=== PATIENT | female | born 1945 | race Caucasian/White ===

== ENCOUNTER 2023-12-08 14:13 | Emergency (ER) | payer MEDICARE, BC ==
--- NOTE | 2024-01-05 11:50 | CT ---
"RHIANNON BRODERICK : 1945 CT Head and cervical spine without contrast Study Date: 12/08/2023 4:21 PM Comparison: No priors available during downtime Clinical History: 78-year-old female with pain after fall Technique: Automated exposure control for dose reduction was used. Examination of the head was done in axial plane without intravenous contrast. Coronal reconstruction performed. CT of the cervical spine was obtained in axial plane without intravenous injection of contrast mater ial. Coronal and sagittal reformatted images were obtained from the axial views for evaluation of fr actures, spinal alignment, and canal. FINDINGS: HEAD: There is no evidence of acute intracranial hemorrhage, acute ischemic changes, mass, mass-effect, mi dline shift, or extra-axial fluid collection. There is no hydrocephalus. There is no effacement of cerebral sulci or basal subarachnoid cisterns. Lopez-white matter distinction is preserved. Slight leftward nasal septal deviation. Paranasal sinuses and mastoid air cells well pneumatized. Orb its and globes are intact. There is some soft tissue thickening along the left posterior scalp, either scarring or mild scalp co ntusion. No underlying calvarial fracture. CERVICAL SPINE: No craniocervical junction abnormality, predental space widening, or prevertebral. Scattered mild to moderate facet and uncovertebral joint arthropathy as well as mild to moderate dege nerative disc disease especially mid to lower cervical spine. Alignment is maintained. No acute fracture seen. Disc osteophyte complexes contribute to mild narrowing the spinal canal such as at C5-C6 and C6-C7. Changes result in variable mild neuroforaminal stenoses throughout. Sagittal and coronal reformatted images confirm above findings. COMBINED IMPRESSION: 1. Either some old soft tissue scarring or mild contusion along the left posterior scalp. Clinically correlate. No acute intracranial abnormality seen. 2. Mild to moderate multilevel spondylotic change of the cervical spine. No acute fracture or malalig nment."
== END 2023-12-08 17:58 | disposition home or self-care (01) ==
LOC: EC 14:13
CPT/HCPCS: 70450; 72125; 99284